=== PATIENT | female | born 1990 | race Caucasian/White ===

== ENCOUNTER → 2024-11-21 12:39 | Outpatient (BNVA) | payer OTHER, SELFPAY | PROVIDERS: Referring Provider Nurse Practitioner Family; Visit Provider Specialist | DX: G35 Multiple sclerosis (principal); M79.7 Fibromyalgia; G47.10 Hypersomnia, unspecified | CPT/HCPCS: 82607; 85651; 86140; 86160; 86162; 86200; 86235; 86255; 86376 ==

== ENCOUNTER 2025-02-19 12:58 | Outpatient (CLI) | payer OTHER, SELFPAY | END 2025-02-19 12:59 | disposition home or self-care (01) | LOC: SLEEP 13:00 | PROVIDERS: Visit Provider Specialist | DX: G35 Multiple sclerosis (principal) | CPT/HCPCS: G0399 ==